=== PATIENT | female | born 1990 | race Caucasian/White ===

== ENCOUNTER 2017-12-30 08:50 | Emergency (ER) | payer OTHER ==
[~2017-12-30] VITALS: Ht 172.7 cm; Wt 113.6 kg
[2017-12-30 08:52] VITALS: BP 130/90; TEMP 98.9
[2017-12-30] MEDS ORDERED: NEXPLANON68 MG ID (08:55)
[2017-12-30] MEDS ORDERED: FLEXERIL 1010 MG/TAB PO (10:08)
[2017-12-30 10:33] VITALS: PULSE 81
== END 2017-12-30 10:34 | disposition home or self-care (01) ==
LOC: COL.ER 08:50
DX: S93.401A Sprain of unspecified ligament of right ankle, initial encounter (principal); S80.02XA Contusion of left knee, initial encounter; S80.01XA Contusion of right knee, initial encounter; V89.2XXA Person injured in unspecified motor-vehicle accident, traffic, initial encounter